=== PATIENT | male | born 1950 | race Caucasian/White ===

== ENCOUNTER 2016-06-30 08:40 | Emergency (ER) | payer MEDICARE, OTHER ==
--- NOTE | 2016-06-30 08:49 | EDM.PDOC ---
ED HPI GI/ABDOMINAL - General Chief Complaint: Gastrointestinal Problem Stated Complaint: Nausea; Vomiting blood Time Seen by Provider: 06/30/16 08:47 Source of Information: Reports: Patient, EMS notes reviewed, Family, RN, RN notes reviewed History Limitations: Reports: No limitations - History of Present Illness INITIAL COMMENTS - FREE TEXT/NARRATIVE: Patient is brought to the ED at [facility] via EMS with complains of nausea and vomiting blood. Patient states he awoke around 4:30 this morning, generally not feeling well. He states he felt very cold and was sweaty. Patient states "I did not know what to do, so I took a nitro." Patient also called 911 at that time. According to EMS crew, the patient was considerably hypotensive and cool. Patient at that time started to complain of left lower leg pain. Patient states his left lower leg feels numb and cold. Patient states "my lower leg just feels ." Patient states he did vomit twice prior to ambulance arrival. He states he noticed what looked like blood in the vomitus. Patient was recently admitted to [facility] on 06/21/2016 after he sustained an AWMI. 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 He is currently taking ASA , warfarin, lovenox, and plavix. Patient was recently seen by his PCP. It was noted during that visit the patient would need a Vascular consult for his PVD. Symptom Onset Date: 06/30/16 Symptom Onset Time: 04:30 Timing/Duration: Reports: Intermittent, Waxing/waning - Related Data Allergies/ADRs: Allergies Allergy/AdvReac Type Severity Reaction Status Date / Time MCI Allergy Edema Uncoded 06/30/16 09:00 Home Meds: Home Meds Amitriptyline [Elavil] 75 mg PO BEDTIME 06/30/16 [History] Aspirin 81 mg PO DAILY 06/30/16 [History] Carvedilol [Coreg] 3.125 mg PO BID 06/30/16 [History] Clopidogrel [Plavix] 75 mg PO DAILY 06/30/16 [History] Enoxaparin [Lovenox] 60 mg SUBCUT Q12HR 06/30/16 [History] Famotidine [Pepcid] 20 mg PO DAILY 06/30/16 [History] Gabapentin [Neurontin] 600 mg PO QID 06/30/16 [History] Lisinopril [Prinivil] 2.5 mg PO DAILY 06/30/16 [History] Nitroglycerin [Nitrostat] 0.4 mg SL Q5M 06/30/16 [History] Warfarin [Coumadin] 5 mg PO DAILY 06/30/16 [History] atorvaSTATin [Lipitor] 40 mg PO BEDTIME 06/30/16 [History] ED ROS GENERAL - Review of Systems Review Of Systems: See Below Constitutional: Reports: chills, weakness. Denies: fever Respiratory: Denies: shortness of breath, cough Cardiovascular: Reports: Blood pressure problem, Dyspnea on exertion. Denies: Chest pain, Edema, Palpitations GI/Abdominal: Reports: Black stool, Nausea. Denies: Abdominal pain, Diarrhea, Vomiting Musculoskeletal: Reports: leg pain (LLE) Skin: Reports: no symptoms Neurological: Reports: numbness (LLE). Denies: dizziness, headache ED EXAM, GI/ABD - Physical Exam Exam: See Below Exam Limited By: No limitations General Appearance: alert, no apparent distress, thin Respiratory/Chest: no respiratory distress, lungs clear, decreased breath sounds Cardiovascular: no edema, tachycardia, other (Unable to doppler pulses from knee to left foot) GI/Abdominal: normal bowel sounds, soft, hyperactive bowel sounds Extremities: no pedal edema, slow capillary refill, leg pain, mottled, pallor Neurological: alert, oriented Skin Exam: Cool, Cyanosis (LLE), Pallor EKG INTERPRETATION EKG Date: 06/30/16 Time: 09:15 Rhythm: NSR Rate (beats/min): 111 [place]: normal P-wave: present QRS: normal ST-T: elevated (due to recent RI) QT: normal RI/PQ Interval: 0.16 Comparison: NA - no prior EKG EKG Interpretation Comments: 1. Sinus Tachycardia 2. Low voltage QRS 3. Recent AWMI Course - Vital Signs Last Recorded V/S: Last Vital Signs Temp 36.5 C 06/30/16 08:40 Pulse 104 H 06/30/16 09:49 Resp 14 06/30/16 09:49 BP 111/76 06/30/16 09:49 Pulse Ox 99 06/30/16 09:49 - Orders/Labs/Meds Orders: Active Orders 24 hr Category Date Time Status EKG 12 Lead [EKG Documentation Completion] [RC] STAT Care 06/30/16 09:06 Active Sodium Chloride 0.9% [Normal Saline] 1,000 ml Med 06/30/16 09:15 Active IV ASDIRECTED Sodium Chloride 0.9% [Saline Flush] Med 06/30/16 09:07 Active 10 ml FLUSH ASDIRECTED PRN Peripheral IV Insertion Adult [OM.PC] Routine Oth 06/30/16 09:07 Ordered Medication Orders Sodium Chloride (Normal Saline) 1,000 mls @ 30 mls/hr IV ASDIRECTED AUGIE Last Admin: 06/30/16 08:40 Dose: 30 mls/hr Sodium Chloride (Saline Flush) 10 ml FLUSH ASDIRECTED PRN PRN Reason: Keep Vein Open Labs: Laboratory Tests 06/30/16 06/30/16 06/30/16 Range/Units 09:02 09:02 09:02 WBC 12.5 H (4.0-10.0) x10^3/uL RBC 2.40 L (4.5-6.0) x10^6/uL Hgb 8.4 L (14.0-18.0) g/dL Hct 25.3 L (40.0-52.0) % MCV 105.4 H (78.0-93.0) fL MCH 35.0 H (26.0-32.0) pg MCHC 33.2 (32.0-36.0) g/dL RDW Coeff of Francoise 13.2 (10.0-15.0) % Plt Count 482 H (130-400) x10^3/uL Add Manual Diff Yes Neutrophils % (Manual) 79 (50-80) % Band Neutrophils % 4 (0-6) % Lymphocytes % (Manual) 11 L (25-50) % Monocytes % (Manual) 3 (2-11) % Metamyelocytes % 2 H (0) % Blast Cells % 1 H (0) % Platelet Estimate Increased H Hypochromasia 2+ moderate H PT 30.6 H (10.0-12.8) SEC INR 2.7 (2.0-3.5) D-Dimer, Quantitative 1.95 H (<=0.58) mg/LFEU Sodium 139 (136-145) mmol/L Potassium 4.8 (3.5-5.1) mmol/L Chloride 108 H (98-107) mmol/L Carbon Dioxide 26 (21-32) mmol/L BUN 30 H (7-18) mg/dL Creatinine 0.9 (0.70-1.30) mg/dL Est Cr Clr Drug Dosing TNP Estimated GFR (MDRD) > 60 Glucose 151 H (74-106) mg/dL Lactic Acid (0.4-2.0) mmol/L Calcium 7.7 L (8.5-10.1) mg/dL Corrected Calcium 8.82 (8.5-10.1) mg/dL Total Bilirubin 0.2 (0.2-1.0) mg/dL AST 17 (15-37) U/L ALT 29 (16-63) U/L Alkaline Phosphatase 51 (46-116) U/L Creatine Kinase 47 (39-308) U/L Creatine Kinase Index 2.3 (0.0-4.0) % CK-MB (CK-2) 1.1 (0.0-3.6) ng/mL Troponin I 0.440 H* (<=0.056) ng/mL C-Reactive Protein 0.7 (<=0.9) mg/dL Total Protein 5.4 L (6.4-8.2) g/dL Albumin 2.6 L (3.4-5.0) g/dL Globulin 2.8 Albumin/Globulin Ratio 0.93 /04/06 Range/Units 09:02 WBC (4.0-10.0) x10^3/uL RBC (4.5-6.0) x10^6/uL Hgb (14.0-18.0) g/dL Hct (40.0-52.0) % MCV (78.0-93.0) fL MCH (26.0-32.0) pg MCHC (32.0-36.0) g/dL RDW Coeff of Francoise (10.0-15.0) % Plt Count (130-400) x10^3/uL Add Manual Diff Neutrophils % (Manual) (50-80) % Band Neutrophils % (0-6) % Lymphocytes % (Manual) (25-50) % Monocytes % (Manual) (2-11) % Metamyelocytes % (0) % Blast Cells % (0) % Platelet Estimate Hypochromasia PT (10.0-12.8) SEC INR (2.0-3.5) D-Dimer, Quantitative (<=0.58) mg/LFEU Sodium (136-145) mmol/L Potassium (3.5-5.1) mmol/L Chloride (98-107) mmol/L Carbon Dioxide (21-32) mmol/L BUN (7-18) mg/dL Creatinine (0.70-1.30) mg/dL Est Cr Clr Drug Dosing Estimated GFR (MDRD) Glucose (74-106) mg/dL Lactic Acid 1.7 (0.4-2.0) mmol/L Calcium (8.5-10.1) mg/dL Corrected Calcium (8.5-10.1) mg/dL Total Bilirubin (0.2-1.0) mg/dL AST (15-37) U/L ALT (16-63) U/L Alkaline Phosphatase (46-116) U/L Creatine Kinase (39-308) U/L Creatine Kinase Index (0.0-4.0) % CK-MB (CK-2) (0.0-3.6) ng/mL Troponin I (<=0.056) ng/mL C-Reactive Protein (<=0.9) mg/dL Total Protein (6.4-8.2) g/dL Albumin (3.4-5.0) g/dL Globulin Albumin/Globulin Ratio Meds: Medications Generic Name Dose Route Start Last Admin Trade Name Freq PRN Reason Stop Dose Admin Sodium Chloride 1,000 mls @ 30 mls/hr 06/30/16 09:15 06/30/16 08:40 Normal Saline IV 30 mls/hr ASDIRECTED AUGIE Administration Sodium Chloride 10 ml 06/30/16 09:07 Saline Flush FLUSH ASDIRECTED PRN Keep Vein Open Departure - Departure Time of Disposition: 10:25 Disposition: DC/Tfer to Acute Hospital 02 Condition: fair Clinical Impression: Ischemic leg Hypotension Qualifiers: Hypotension type: unspecified hypotension type Qualified Code(s): I95.9 - Hypotension, unspecified Vomiting blood Qualifiers: Nausea presence: with nausea Qualified Code(s): K92.0 - Hematemesis; R11.0 - Nausea Referrals: Blas Antonio MD [Primary Care Provider] - Forms: Interfacility Transfer EMTALA Additional Instructions: Patient will be transferred to [facility] ED Communication - ED Communication Date/Time Date: 06/30/16 Time Called: 10:24 - Discussed Case With (1) Discussed Case With (1): Admitting Provider (Dr. Elliot Abdi, ED), Other (Dr. Farrell, Vascular surgery) - Conversation Summary Admitting Provider Agreed to Patient's Admission: Yes Summary Comment: Patient will be transferred to [facility] for further treatment. Accepting provider is Dr. Abdi. Full report given. All questions answered. - Problem List Review Problem List Initiated/Reviewed/Updated: Yes - My Orders Last 24 Hours: My Active Orders 06/30/16 09:06 EKG 12 Lead [EKG Documentation Completion] [RC] STAT 06/30/16 09:07 Sodium Chloride 0.9% [Saline Flush] 10 ml FLUSH ASDIRECTED PRN Peripheral IV Insertion Adult [OM.PC] Routine 06/30/16 09:15 Sodium Chloride 0.9% [Normal Saline] 1,000 ml IV ASDIRECTED - Assessment/Plan Last 24 Hours: My Active Orders 06/30/16 09:06 EKG 12 Lead [EKG Documentation Completion] [RC] STAT 06/30/16 09:07 Sodium Chloride 0.9% [Saline Flush] 10 ml FLUSH ASDIRECTED PRN Peripheral IV Insertion Adult [OM.PC] Routine 06/30/16 09:15 Sodium Chloride 0.9% [Normal Saline] 1,000 ml IV ASDIRECTED Plan: Patient will be transferred to [facility]. Accepting provider is Dr. Elliot Abdi. Full report given via telephone.
[2016-06-30] MEDS ORDERED: Sodium Chloride 0.9% 10 ML Syringe FLUSH PRN (09:07)
[2016-06-30] MEDS ORDERED: Sodium Chloride 0.9% 1,000 ML IV SCH (09:15)
[2016-06-30 09:46] LABS: CHLORIDE,CL 108 mmol/L (98-107); SODIUM,NA 139 mmol/L (136-145)
[2016-06-30 10:46] VITALS: BP 100/56
== END 2016-06-30 11:05 | disposition short-term general hospital (02) ==
LOC: VM.ED 08:40
DX: K92.0 Hematemesis (principal); I95.9 Hypotension, unspecified; I99.8 Other disorder of circulatory system; Z88.8 Allergy status to other drugs, medicaments and biological substances; Z79.82 Long term (current) use of aspirin; Z79.01 Long term (current) use of anticoagulants; Z79.899 Other long term (current) drug therapy
CPT/HCPCS: 36415; 80053; 82550; 82553; 83605; 84484; 85025; 85379; 85610; 86140; 93005; 96360; 96361; 99285; J7030; 99284-GF

== ENCOUNTER 2021-10-12 16:24 | Emergency (ER) | payer OTHER, MEDICARE ==
[2021-10-12 16:49] LABS: CHLORIDE,CL 102 mmol/L (98-107); SODIUM,NA 137 mmol/L (136-145)
[2021-10-12 16:50] LABS: ANION GAP 14.3 mmol/L (5-15); ESTIMATED GFR 92 mL/min (>=60)
== END 2021-10-12 18:40 ==
LOC: VM.ED 16:24
DX: Z04.2 Encounter for examination and observation following work accident (principal); F10.129 Alcohol abuse with intoxication, unspecified; I10 Essential (primary) hypertension; E78.00 Pure hypercholesterolemia, unspecified; I25.2 Old myocardial infarction; Y90.8 Blood alcohol level of 240 mg/100 ml or more; Z91.030 Bee allergy status; Z88.8 Allergy status to other drugs, medicaments and biological substances; Z79.01 Long term (current) use of anticoagulants; Z79.02 Long term (current) use of antithrombotics/antiplatelets; Z79.899 Other long term (current) drug therapy
CPT/HCPCS: 36415; 70450; 71045; 72125; 80053; 80307; 82947; 85025; 85610; 99284; 99284-25

== ENCOUNTER 2024-06-23 14:57 | Inpatient (IN) | payer MEDICARE, OTHER ==
[2024-06-23] MEDS ORDERED: Sodium Chloride 0.9% 10 ML Syringe FLUSH PRN (15:31)
[2024-06-23] MEDS ORDERED: Lactated Ringers 1,000 ML IV ONE (15:33)
[2024-06-23 15:39] LABS: BASOPHILS PERCENT AUTO 0.3 % (0.2-1.2); EOSINOPHILS ABSOLUTE AUTO 0.2 x10^3/uL (0.0-0.5); EOSINOPHILS PERCENT AUTO 3.1 % (0.0-4.0); HEMATOCRIT 13.1 % (40.0-52.0); IMMATURE GRAN ABSOLUTE AUTO 0.02 x10^3/uL (0.00-0.07); LYMPHOCYTES ABSOLUTE AUTO 1.5 x10^3/uL (1.0-4.8); MEAN CORPUSCULAR HGB CONC 29.8 g/dL (32.0-36.0); MEAN CORPUSCULAR VOLUME 87.3 fL (78.0-93.0); MONOCYTES ABSOLUTE AUTO 0.6 x10^3/uL (0.0-0.8); MONOCYTES PERCENT AUTO 9.4 % (2.0-11.0); NEUTROPHILS ABSOLUTE AUTO 4.3 x10^3/uL (1.8-7.7); NEUTROPHILS PERCENT AUTO 63.9 % (50.0-80.0); WHITE BLOOD CELL COUNT,WBC 6.7 x10^3/uL (4.0-10.0)
[2024-06-23 15:46] LABS: HEMOGLOBIN 3.9 g/dL (14.0-18.0)
[2024-06-23 15:55] LABS: INR 3.6 (0.9-1.1); PROTHROMBIN TIME 36.7 SEC (9.6-12.0); PTT,PARTIAL THROMBOPLSTIN TIME 33.3 SEC (23.5-33.2)
[2024-06-23 15:56] LABS: PLATELET COUNT,PLT 236 x10^3/uL (130-400)
[2024-06-23 15:59] LABS: ALANINE AMINOTRANSFERASE,ALT 15 U/L (16-63); ALBUMIN 3.3 g/dL (3.4-5.0); ALKALINE PHOSPHATASE 63 U/L (46-116); ASPARTATE AMNIOTRANSFERASE,AST 12 U/L (15-37); BILIRUBIN TOTAL 0.2 mg/dL (0.2-1.0); BLOOD UREA NITROGEN,BUN 13 mg/dL (7-18); CALCIUM 8.5 mg/dL (8.5-10.1); CARBON DIOXIDE,CO2 24 mmol/L (21-32); CHLORIDE,CL 105 mmol/L (98-107); CREATININE 0.8 mg/dL (0.70-1.30); GLUCOSE RANDOM 100 mg/dL (70-99); POTASSIUM,K 4.3 mmol/L (3.5-5.1); PROTEIN TOTAL,TP 6.3 g/dL (6.4-8.2); SODIUM,NA 142 mmol/L (136-145); TSH ULTRASENSITIVE 0.362 uIU/mL (0.358-3.74)
[2024-06-23 16:03] LABS: ANION GAP 17.3 mmol/L (5-15); C-REACTIVE PROTEIN < 0.50 mg/dL (<=0.50); ESTIMATED GFR 94 mL/min (>=60); ETHANOL BLOOD MEDICAL < 3 mg/dL (0-3)
[2024-06-23 16:06] LABS: HCO3 VENOUS,POC 20 mmol/L (22-29); O2 SATURATION VENOUS,POC 97 %; PCO2 VENOUS,POC 35 mmHg (41-51); PH VENOUS,POC 7.37 pH (7.32-7.43); PO2 VENOUS,POC 97 mmHg
[2024-06-23] MEDS ORDERED: Albuterol HFA 18 Gm Inhaler INH PRN (17:49)
[2024-06-23] MEDS ORDERED: Nitroglycerin 0.4 MG Tab.SL SL PRN (17:49)
[2024-06-23] MEDS: Carvedilol 25 MG Tab PO SCH (20:21)
[2024-06-23] MEDS: Nicotine 21 MG/24 Hr Patch TRDERM SCH (20:22)
[2024-06-23] MEDS: Finasteride 5 MG Tab PO SCH (20:33)
[2024-06-23] MEDS: Gabapentin 300 MG Cap PO SCH (20:48)
[2024-06-23] MEDS: atorvaSTATin 40 MG Tab PO SCH (20:48)
[2024-06-23] MEDS: Phytonadione 5 MG Tab PO ONE ×2 (22:06→22:07)
[2024-06-23] MEDS: Pantoprazole 40 MG Vial IVPUSH ONE ×2 (22:06)
[2024-06-23 22:12] LABS: APPEARANCE,URINE CLEAR (CLEAR); BILIRUBIN,URINE NEGATIVE (NEGATIVE); COLOR,URINE YELLOW (YELLOW); GLUCOSE,URINE NEGATIVE (NEGATIVE); KETONES,URINE NEGATIVE (NEGATIVE); LEUKOCYTE ESTERASE,URINE NEGATIVE (NEGATIVE); NITRITE,URINE NEGATIVE (NEGATIVE); OCCULT BLOOD,URINE NEGATIVE (NEGATIVE); PH,URINE 5.5 (5.0-8.0); PROTEIN,URINE NEGATIVE (NEGATIVE); UROBILINOGEN,URINE 0.2 EU/dL (0.2)
[2024-06-24] MEDS: Pantoprazole 40 MG Tab.CR PO SCH (06:20)
[2024-06-24 06:53] LABS: BASOPHILS PERCENT AUTO 0.4 % (0.2-1.2); EOSINOPHILS ABSOLUTE AUTO 0.2 x10^3/uL (0.0-0.5); EOSINOPHILS PERCENT AUTO 3.8 % (0.0-4.0); HEMATOCRIT 20.3 % (40.0-52.0); IMMATURE GRAN ABSOLUTE AUTO 0.01 x10^3/uL (0.00-0.07); LYMPHOCYTES ABSOLUTE AUTO 1.9 x10^3/uL (1.0-4.8); LYMPHOCYTES PERCENT AUTO 35.6 % (25.0-50.0); MEAN CORPUSCULAR HEMOGLOBIN 27.7 pg (26.0-32.0); MEAN CORPUSCULAR HGB CONC 32.5 g/dL (32.0-36.0); MEAN CORPUSCULAR VOLUME 85.3 fL (78.0-93.0); MONOCYTES ABSOLUTE AUTO 0.6 x10^3/uL (0.0-0.8); MONOCYTES PERCENT AUTO 11.2 % (2.0-11.0); NEUTROPHILS ABSOLUTE AUTO 2.6 x10^3/uL (1.8-7.7); NEUTROPHILS PERCENT AUTO 48.8 % (50.0-80.0); PLATELET COUNT,PLT 195 x10^3/uL (130-400); RED BLOOD CELL COUNT 2.38 x10^6/uL (4.5-6.0); WHITE BLOOD CELL COUNT,WBC 5.3 x10^3/uL (4.0-10.0)
[2024-06-24 06:59] LABS: HEMOGLOBIN 6.6 g/dL (14.0-18.0)
[2024-06-24 07:09] LABS: INR 2.7 (0.9-1.1); PROTHROMBIN TIME 27.9 SEC (9.6-12.0)
[2024-06-24 07:22] LABS: A/G RATIO 1.04; ALANINE AMINOTRANSFERASE,ALT 11 U/L (16-63); ALBUMIN 2.7 g/dL (3.4-5.0); ALKALINE PHOSPHATASE 54 U/L (46-116); BILIRUBIN TOTAL 0.3 mg/dL (0.2-1.0); BLOOD UREA NITROGEN,BUN 13 mg/dL (7-18); CARBON DIOXIDE,CO2 25 mmol/L (21-32); CHLORIDE,CL 108 mmol/L (98-107); CREATININE 0.8 mg/dL (0.70-1.30); EST CRCL DRUG DOSING (CG) 63.75 mL/min; GLUCOSE RANDOM 84 mg/dL (70-99); POTASSIUM,K 4.1 mmol/L (3.5-5.1); PROTEIN TOTAL,TP 5.3 g/dL (6.4-8.2); SODIUM,NA 142 mmol/L (136-145)
[2024-06-24 07:31] LABS: ANION GAP 13.1 mmol/L (5-15); ASPARTATE AMNIOTRANSFERASE,AST < 10 U/L (15-37); ESTIMATED GFR 94 mL/min (>=60)
[2024-06-24] MEDS: Sertraline 50 MG Tab PO SCH (08:19)
[2024-06-24] MEDS: Lisinopril 5 MG Tab PO SCH (08:19)
[2024-06-24] MEDS ORDERED: Finasteride 5 MG Tab PO SCH (09:00)
[2024-06-24] MEDS: Ascorbic Acid 500 MG Tab PO SCH (11:39)
[2024-06-24] MEDS: Ferrous Sulfate 325 MG Tab PO SCH (11:40)
[2024-06-24 13:21] VITALS: BP 139/63; PULSE 76
[2024-06-24] MEDS: Iopamidol 612 MG/ML 100 ML Bottle IVPUSH ONE (13:32)
[2024-06-24 15:56] LABS: HEMATOCRIT 26.4 % (40.0-52.0); HEMOGLOBIN 8.9 g/dL (14.0-18.0)
== END 2024-06-24 16:20 | disposition home or self-care (01) | DRG 812 ==
LOC: VM.ED 14:57 → VM.MS 17:18
PROVIDERS: ADMIT Internal Medicine; ATTEND Internal Medicine
DX: D62 Acute posthemorrhagic anemia (principal); I50.22 Chronic systolic (congestive) heart failure; E44.0 Moderate protein-calorie malnutrition; D50.9 Iron deficiency anemia, unspecified; W18.30XA Fall on same level, unspecified, initial encounter; F17.210 Nicotine dependence, cigarettes, uncomplicated; F10.10 Alcohol abuse, uncomplicated; I25.10 Atherosclerotic heart disease of native coronary artery without angina pectoris; J44.9 Chronic obstructive pulmonary disease, unspecified; F32.A Depression, unspecified; I11.0 Hypertensive heart disease with heart failure; N52.9 Male erectile dysfunction, unspecified; F12.90 Cannabis use, unspecified, uncomplicated; N40.0 Benign prostatic hyperplasia without lower urinary tract symptoms; E78.00 Pure hypercholesterolemia, unspecified; F15.90 Other stimulant use, unspecified, uncomplicated; Z79.01 Long term (current) use of anticoagulants; Z88.8 Allergy status to other drugs, medicaments and biological substances; Z91.030 Bee allergy status; I25.2 Old myocardial infarction; Z87.81 Personal history of (healed) traumatic fracture; Z95.5 Presence of coronary angioplasty implant and graft; Z85.51 Personal history of malignant neoplasm of bladder; Z85.038 Personal history of other malignant neoplasm of large intestine; Z98.890 Other specified postprocedural states
CPT/HCPCS: 36415; 36430; 71045; 71260; 80053; 80307; 81003; 82140; 82274; 82728; 82803; 83605; 83735; 84443; 84484; 85014; 85018; 85025; 85610; 85730; 86140; 86850; 86900; 86901; 86920; 86922; 87040; 87428-QW; 93005; 93010; 97161-GP; 97165-GO; 99284; 99285; A9270-GY; J2470; P9016; Q9967

== ENCOUNTER 2024-08-10 10:50 | Observation (INO) | payer MEDICARE, OTHER ==
[2024-08-10 11:11] LABS: BASOPHILS ABSOLUTE AUTO 0.1 x10^3/uL (0.0-0.2); BASOPHILS PERCENT AUTO 0.8 % (0.2-1.2); EOSINOPHILS ABSOLUTE AUTO 0.4 x10^3/uL (0.0-0.5); HEMATOCRIT 16.9 % (40.0-52.0); IMMATURE GRAN ABSOLUTE AUTO 0.01 x10^3/uL (0.00-0.07); LYMPHOCYTES ABSOLUTE AUTO 1.3 x10^3/uL (1.0-4.8); LYMPHOCYTES PERCENT AUTO 15.1 % (25.0-50.0); MEAN CORPUSCULAR HEMOGLOBIN 28.3 pg (26.0-32.0); MEAN CORPUSCULAR VOLUME 88.5 fL (78.0-93.0); MONOCYTES ABSOLUTE AUTO 0.5 x10^3/uL (0.0-0.8); MONOCYTES PERCENT AUTO 5.7 % (2.0-11.0); NEUTROPHILS ABSOLUTE AUTO 6.2 x10^3/uL (1.8-7.7); NEUTROPHILS PERCENT AUTO 73.3 % (50.0-80.0); PLATELET COUNT,PLT 300 x10^3/uL (130-400); RED BLOOD CELL COUNT 1.91 x10^6/uL (4.5-6.0); WHITE BLOOD CELL COUNT,WBC 8.5 x10^3/uL (4.0-10.0)
[2024-08-10 11:18] LABS: HEMOGLOBIN 5.4 g/dL (14.0-18.0)
[2024-08-10 11:22] LABS: INR 2.1 (0.9-1.1); PROTHROMBIN TIME 22.3 SEC (9.6-12.0)
[2024-08-10] MEDS ORDERED: Sodium Chloride 0.9% 10 ML Syringe FLUSH PRN (11:26)
[2024-08-10] MEDS: Sodium Chloride 0.9% 1,000 ML IV ONE (11:27)
[2024-08-10 11:28] LABS: A/G RATIO 1.06; ALANINE AMINOTRANSFERASE,ALT 15 U/L (16-63); ALBUMIN 3.3 g/dL (3.4-5.0); ALKALINE PHOSPHATASE 66 U/L (46-116); ANION GAP 16.1 mmol/L (5-15); ASPARTATE AMNIOTRANSFERASE,AST 17 U/L (15-37); BILIRUBIN TOTAL 0.2 mg/dL (0.2-1.0); BLOOD UREA NITROGEN,BUN 22 mg/dL (7-18); CALCIUM 8.5 mg/dL (8.5-10.1); CARBON DIOXIDE,CO2 26 mmol/L (21-32); CHLORIDE,CL 102 mmol/L (98-107); CREATININE 1.2 mg/dL (0.70-1.30); ESTIMATED GFR 64 mL/min (>=60); GLUCOSE RANDOM 120 mg/dL (70-99); POTASSIUM,K 5.1 mmol/L (3.5-5.1); PROTEIN TOTAL,TP 6.4 g/dL (6.4-8.2); SODIUM,NA 139 mmol/L (136-145)
[2024-08-10 11:35] LABS: APPEARANCE,URINE SLIGHTLY CLOUDY (CLEAR); BILIRUBIN,URINE SMALL (NEGATIVE); COLOR,URINE RED (YELLOW); GLUCOSE,URINE NEGATIVE (NEGATIVE); KETONES,URINE NEGATIVE (NEGATIVE); LEUKOCYTE ESTERASE,URINE TRACE (NEGATIVE); NITRITE,URINE NEGATIVE (NEGATIVE); OCCULT BLOOD,URINE LARGE (NEGATIVE); PROTEIN,URINE 100 mg/dL (NEGATIVE)
[2024-08-10 11:56] LABS: BACTERIA,URINE RARE /HPF (NOT SEEN); MUCUS,URINE OCCASIONAL /LPF (NOT SEEN); RBC,URINE >100 /HPF (NOT SEEN); SQUAMOUS EPITHELIAL CELLS,UR NOT SEEN /HPF (NOT SEEN)
[2024-08-10] MEDS ORDERED: Nitroglycerin 0.4 MG Tab.SL SL PRN (13:58)
[2024-08-10] MEDS ORDERED: Albuterol HFA 18 Gm Inhaler INH PRN (14:16)
[2024-08-10] MEDS ORDERED: Acetaminophen 325 MG Tab PO PRN (14:16)
[2024-08-10] MEDS: CARVEDILOL 25 MG PO SCH (17:48)
[2024-08-10] MEDS: WARFARIN 5 MG PO SCH (20:57)
[2024-08-10] MEDS: Gabapentin 300 MG Cap (OWN SUPPLY) PO SCH (20:58)
[2024-08-10] MEDS: Sertraline 50 MG Tab (OWN SUPPLY) PO SCH (20:58)
[2024-08-11 06:53] LABS: HEMATOCRIT 25.1 % (40.0-52.0); HEMOGLOBIN 8.2 g/dL (14.0-18.0); MEAN CORPUSCULAR HEMOGLOBIN 28.4 pg (26.0-32.0); MEAN CORPUSCULAR HGB CONC 32.7 g/dL (32.0-36.0); MEAN CORPUSCULAR VOLUME 86.9 fL (78.0-93.0); RED BLOOD CELL COUNT 2.89 x10^6/uL (4.5-6.0); WHITE BLOOD CELL COUNT,WBC 5.4 x10^3/uL (4.0-10.0)
[2024-08-11 07:10] LABS: INR 2.2 (0.9-1.1)
[2024-08-11] MEDS: Spironolactone 25 MG Tab (OWN SUPPLY) PO SCH (08:01)
[2024-08-11] MEDS: LISINOPRIL 5 MG PO SCH (08:01)
[2024-08-11] MEDS: Ferrous Sulfate 325 MG Tab PO SCH (08:01)
[2024-08-11] MEDS: Ascorbic Acid 500 MG Tab PO SCH (08:01)
[2024-08-11] MEDS: Clopidogrel 75 MG Tab (OWN SUPPLY) PO SCH (08:01)
[2024-08-11] MEDS: Pantoprazole 40 MG Tab.CR (OWN SUPPLY) PO SCH (08:01)
[2024-08-11] MEDS: Phytonadione 100 MCG Tab PO SCH (08:02)
[2024-08-11 10:33] VITALS: BP 107/61; PULSE 67
[2024-08-11] MEDS ORDERED: WARFARIN 5 MG PO SCH (21:00)
== END 2024-08-11 10:45 | disposition home or self-care (01) ==
LOC: VM.ED 10:50 → VM.MS 11:55
PROVIDERS: ADMIT Nurse Practitioner Family; ATTEND Nurse Practitioner Family
DX: D64.89 Other specified anemias (principal); R31.0 Gross hematuria; I10 Essential (primary) hypertension; E78.5 Hyperlipidemia, unspecified; I25.10 Atherosclerotic heart disease of native coronary artery without angina pectoris; F17.210 Nicotine dependence, cigarettes, uncomplicated; Z88.5 Allergy status to narcotic agent; Z91.030 Bee allergy status; Z79.899 Other long term (current) drug therapy; Z79.01 Long term (current) use of anticoagulants
CPT/HCPCS: 36415; 36430; 80053; 81001; 85018; 85025; 85027; 85610; 86850; 86900; 86901; 86920; 86922; 87086; 99284; A9270-GY; J7030; P9016

== ENCOUNTER 2024-08-19 15:38 | Observation (INO) | payer MEDICARE, OTHER ==
[2024-08-19 16:18] LABS: BASOPHILS ABSOLUTE AUTO 0.1 x10^3/uL (0.0-0.2); BASOPHILS PERCENT AUTO 1.1 % (0.2-1.2); EOSINOPHILS ABSOLUTE AUTO 0.2 x10^3/uL (0.0-0.5); EOSINOPHILS PERCENT AUTO 4.3 % (0.0-4.0); HEMATOCRIT 18.9 % (40.0-52.0); IMMATURE GRAN ABSOLUTE AUTO 0.01 x10^3/uL (0.00-0.07); LYMPHOCYTES ABSOLUTE AUTO 1.5 x10^3/uL (1.0-4.8); LYMPHOCYTES PERCENT AUTO 27.1 % (25.0-50.0); MEAN CORPUSCULAR HEMOGLOBIN 28.1 pg (26.0-32.0); MEAN CORPUSCULAR HGB CONC 32.3 g/dL (32.0-36.0); MEAN CORPUSCULAR VOLUME 87.1 fL (78.0-93.0); MONOCYTES ABSOLUTE AUTO 0.4 x10^3/uL (0.0-0.8); MONOCYTES PERCENT AUTO 7.8 % (2.0-11.0); NEUTROPHILS ABSOLUTE AUTO 3.3 x10^3/uL (1.8-7.7); NEUTROPHILS PERCENT AUTO 59.5 % (50.0-80.0); PLATELET COUNT,PLT 261 x10^3/uL (130-400); RED BLOOD CELL COUNT 2.17 x10^6/uL (4.5-6.0)
[2024-08-19] MEDS: Lactated Ringers 1,000 ML IV SCH (16:20)
[2024-08-19 16:35] LABS: HEMOGLOBIN 6.1 g/dL (14.0-18.0)
[2024-08-19 16:36] LABS: INR 2.4 (0.9-1.1); PROTHROMBIN TIME 25.3 SEC (9.6-12.0); WHITE BLOOD CELL COUNT,WBC 5.5 x10^3/uL (4.0-10.0)
[2024-08-19 16:41] LABS: ALANINE AMINOTRANSFERASE,ALT 17 U/L (16-63); ALBUMIN 3.5 g/dL (3.4-5.0); ALKALINE PHOSPHATASE 57 U/L (46-116); ASPARTATE AMNIOTRANSFERASE,AST 13 U/L (15-37); BILIRUBIN TOTAL 0.3 mg/dL (0.2-1.0); BLOOD UREA NITROGEN,BUN 17 mg/dL (7-18); CALCIUM 8.3 mg/dL (8.5-10.1); CARBON DIOXIDE,CO2 27 mmol/L (21-32); CHLORIDE,CL 100 mmol/L (98-107); CREATININE 1.3 mg/dL (0.70-1.30); GLUCOSE RANDOM 113 mg/dL (70-99); POTASSIUM,K 4.5 mmol/L (3.5-5.1); PROTEIN TOTAL,TP 6.2 g/dL (6.4-8.2); SODIUM,NA 135 mmol/L (136-145)
[2024-08-19 16:43] LABS: ANION GAP 12.5 mmol/L (5-15); ESTIMATED GFR 58 mL/min (>=60)
[2024-08-19 17:01] LABS: APPEARANCE,URINE TURBID (CLEAR); BILIRUBIN,URINE LARGE (NEGATIVE); COLOR,URINE RED (YELLOW); GLUCOSE,URINE NEGATIVE (NEGATIVE); KETONES,URINE 40 mg/dL (NEGATIVE); LEUKOCYTE ESTERASE,URINE LARGE (NEGATIVE); NITRITE,URINE NEGATIVE (NEGATIVE); OCCULT BLOOD,URINE LARGE (NEGATIVE); PH,URINE 8.5 (5.0-8.0); PROTEIN,URINE >=300 mg/dL (NEGATIVE); UROBILINOGEN,URINE >=8.0 EU/dL (0.2)
[2024-08-19 17:04] LABS: RBC,URINE PACKED /HPF (NOT SEEN); WBC,URINE 20-30 /HPF (NOT SEEN)
[2024-08-19] MEDS ORDERED: Acetaminophen/HYDROcodone 325-5 MG Tab PO PRN (18:41)
[2024-08-19] MEDS ORDERED: Acetaminophen 325 MG Tab PO PRN (18:41)
[2024-08-19] MEDS ORDERED: Ondansetron 4 MG/2 ML SDV IV PRN (18:41)
[2024-08-19] MEDS ORDERED: Morphine 2 MG/ML SYRINGE IVPUSH PRN (18:41)
[2024-08-19] MEDS ORDERED: Albuterol/Ipratropium 3.0-0.5 MG/3 ML Neb Soln NEB PRN (18:41)
[2024-08-19] MEDS ORDERED: Melatonin 3 MG Tab PO PRN (18:41)
[2024-08-19] MEDS ORDERED: Polyethylene Glycol 3350 Powder 17 GM Packet PO PRN (18:41)
[2024-08-19] MEDS ORDERED: Ondansetron 4 MG Tab.DIS PO PRN (18:41)
[2024-08-19] MEDS ORDERED: Nitroglycerin 0.4 MG Tab.SL SL PRN (18:44)
[2024-08-19] MEDS: Warfarin 5 MG Tab PO SCH (20:35)
[2024-08-19] MEDS: Sertraline 50 MG Tab PO SCH (20:37)
[2024-08-19] MEDS: atorvaSTATin 40 MG Tab PO SCH (20:37)
[2024-08-19] MEDS: Gabapentin 300 MG Cap PO SCH (20:37)
[2024-08-20 06:46] VITALS: BP 130/69; PULSE 63
[2024-08-20 07:12] LABS: HEMATOCRIT 24.7 % (40.0-52.0)
[2024-08-20 07:27] LABS: INR 2.5 (0.9-1.1); PROTHROMBIN TIME 25.7 SEC (9.6-12.0)
[2024-08-20] MEDS: Spironolactone 25 MG Tab PO SCH (08:38)
[2024-08-20] MEDS: Lisinopril 5 MG Tab PO SCH (08:38)
[2024-08-20] MEDS: Carvedilol 25 MG Tab PO SCH (08:38)
[2024-08-20] MEDS: Ferrous Sulfate 325 MG Tab PO SCH (08:38)
[2024-08-20] MEDS: Pantoprazole 40 MG Tab.CR PO SCH (08:40)
[2024-08-20] MEDS: Finasteride 5 MG Tab PO SCH (08:40)
[2024-08-20] MEDS: Ascorbic Acid 500 MG Tab PO SCH (08:40)
[2024-08-20] MEDS ORDERED: Warfarin 5 MG Tab PO SCH (21:00)
== END 2024-08-20 10:30 | disposition home or self-care (01) ==
LOC: VM.ED 15:38 → VM.MS 18:05
PROVIDERS: ADMIT Family Medicine; ATTEND Family Medicine
DX: J44.9 Chronic obstructive pulmonary disease, unspecified (principal); I11.0 Hypertensive heart disease with heart failure; I50.9 Heart failure, unspecified; E78.5 Hyperlipidemia, unspecified; I25.10 Atherosclerotic heart disease of native coronary artery without angina pectoris; C67.9 Malignant neoplasm of bladder, unspecified; D63.0 Anemia in neoplastic disease; Z88.5 Allergy status to narcotic agent; Z79.01 Long term (current) use of anticoagulants; Z79.899 Other long term (current) drug therapy; Z91.030 Bee allergy status
CPT/HCPCS: 36415; 36430; 80053; 81001; 85014; 85018; 85025; 85610; 86850; 86900; 86901; 86920; 86922; 87086; 96360; 96361; 99223; 99223-GT; 99239; 99239-GT; 99284; 99285-25; G0378; J7120; P9016